=== PATIENT | female | born 1945 | race Caucasian/White ===

== ENCOUNTER 2017-01-04 04:15 | Inpatient (IN) | payer OTHER, MEDICARE ==
[~2017-01-04] VITALS: Ht 152.4 cm; Wt 70.3 kg
[~2017-01-04 04:15] MED LIST: ALIGN4 M1 PO; ATORVASTATIN CA10 M1 PO; AZILECT1 M1 PO; CALCIUM PO; GLUCOSA-CHOND-1 EACH PO; LEVOTHYROXINE112 MCG PO; MIRALAX17 G1 PO; MIRAPEX0.25 M1 PO; MULTIVITAMINS1 EAC9 PO; VICODIN 5-3001 EACH PO; VITAMIN C500 M7 PO; VITAMIN D1000 UNIT PO
--- NOTE | 2017-01-04 10:26 | Admission Core Measures ---
Admission Meds I reviewed the following Meds: Current Medications Sig/Adali Start time Last Medication Dose Stop Time Status Admin Acetaminophen 975 MG ONCE 01/04 0000 NR (Tylenol) 01/04 235 Atorvastatin Calcium 10 MG 1700 01/04 1700 AC (Lipitor) Cefazolin Sodium 2,000 MG ONCE 01/04 0000 NR (Kefzol-Ancef Inj) 01/04 2359 Lactobacillus 1 CAP DAILY 01/04 1000 AC Acidophilus (Probiotic) Levothyroxine Sodium 0.112 MG DAILY AC 01/04 1000 AC (Synthroid) Multivitamins 1 TAB DAILY 01/04 1000 AC Therapeutic (Theragran-M Vitamins Tabs) Oxycodone HCl 10 MG ONCE 01/04 0000 NR (Roxicodone) 01/04 235 Polyethylene Glycol 17 GM DAILY 01/04 1000 AC (Miralax) Pramipexole 0.75 MG TID 01/05 1000 AC Dihydrochloride (Mirapex) Rasagiline 1 MG DAILY 01/05 1000 AC (Azilect 1MG) Rasagiline 1 MG DAILY 01/04 0945 CAN (Azilect 1MG) Acute Coronary Syndrome Inclusion Criteria ACS Diagnosis No Inpatient Core Measures LDL Reminder: If No, please order W/I first 24hr of stay Congestive Heart Failure Inclusion Criteria CHF Diagnosis No Cerebrovascular accident Inclusion Criteria CVA/TIA Diagnosis No Inpatient Core Measures Bedside Swallow Eval Reminder: If BSE failed, place ST order Antithrombotic Reminder: Order Antithrombotic Medication by end of day 2 Antithrombotic Reminder: Document Reason Antithrombotic Not ordered by end of day 2 AFIB/Flutter Reminder: If Present, add to problem list AFIB/Flutter Reminder: Order Anticoag Medication for pts with AFIB/Flutter Atherosclerosis Reminder: If Present, add to problem list LDL Reminder: If No, please order W/I first 24hr of stay PT Order Reminder: If No, please order Venous thromboembolism Inpatient Core Measures VTE Risk Factors: Age > 40, Surgery No Mech VTE prophylaxis d/t No contraindications No VTE Pharm Prophylaxis d/t No contraindications Inclusion Criteria - Per Current guidelines, there needs to be overlap - treatment for the first 5 days of Warfarin therapy. - Parenteral Anticoagulation (IV or SC) needs to be - given along with Warfarin therapy. VTE Diagnosis No VTE Type NONE VTE Confirmed by (Test) NONE Problem List As ranked by this Provider includes Assessment & Plan 1. Unilateral primary osteoarthritis, left hip HOME MEDS Home Med List Ascorbic Acid (Vitamin C) 500 MG CAPSULE.ER 1 CAP PO DAILY SUPPLEMENT ( Reported) Atorvastatin Calcium 10 MG TABLET 1 TAB PO DAILY CHOLESTEROL (Reported) Bifidobacterium Infantis (Align) 4 MG (1 BILLION CELL) CAPSULE 1 TAB PO D BOWEL HEALTH (Reported) [CALCIUM] 1 TAB PO D SUPPLEMENT (Reported) Cholecalciferol (Vitamin D3) (Vitamin D) 1,000 UNIT TABLET 1 TAB PO DAILY SUPPLEMENT (Reported) Gluc/Singh-MSM#1/Vit C/Wil/Bor (Dbgbrhb-Ewgci-EFS Complex Cplt) 375-500 MG TABLET 1 TAB PO D SUPPLEMENT (Reported) Hydrocodone/Acetaminophen (Vicodin 5-300 MG Tablet) 5 MG-300 MG TABLET 1 TAB PO Q4-6 PRN PAIN (Reported) Levothyroxine Sodium 112 MCG TABLET 1 TAB PO DAILY THYROID (Reported) Multiple Vitamin (Multivitamins) 1 EACH TABLET 1 TAB PO DAILY SUPPLEMENT ( Reported) Polyethylene Glycol 3350 (Miralax) 17 GRAM POWD.PACK 1 PAC PO DAILY CONSTIPATION (Reported) Pramipexole Di-HCl (Mirapex) 0.25 MG TABLET 2.25 MG PO D PARKINSONS (Reported ) Rasagiline Mesylate (Azilect) 1 MG TABLET 1 TAB PO D PARKINSONS (Reported)
[2017-01-04] MEDS ORDERED: DILAUDID2 M1 PO (10:28)
[2017-01-04] MEDS ORDERED: MS CONTIN15 M2 PO (10:28)
[2017-01-04] MEDS ORDERED: COLACE100 M1 PO (10:28)
[2017-01-04] MEDS ORDERED: ASPIRIN EC325 M2 PO (10:28)
[2017-01-04] MEDS ORDERED: PRILOSEC OTC20 M1 PO (10:28)
--- NOTE | 2017-01-04 10:37 | Patient Discharge Instructions ---
Discharge Instructions General Discharge Information You were seen/treated for: LEFT HIP PAIN You had these procedures: LEFT TOTAL HIP REPLACEMENT Watch for these problems: INCREASING PAIN DESPITE THE USE OF PAIN MEDICATION, REDNESS, WARMTH, SWELLING. DRAINAGE OF ANY TYPE FROM INCISION. INABILITY TO BEAR WEIGHT ON LEFT LEG. FEVER GREATER THAN 101.5. Do not soak the wound: Yes No bath, but you may shower: Yes Other wound care: KEEP WOUND CLEAN AND DRY. DRESSING WILL BE CHANGED ON POST OPERATIVE DAY 2. IF YOU ARE HOME, IT WILL BE CHANGED BY HOME CARE NURSE. NO OINTMENTS OF ANY KIND ON OR NEAR INCISION. NO EXCEPTIONS. Special Instructions: ASPIRIN: YOU HAVE BEEN GIVEN A PRESCRIPTION FOR ASPIRIN. THE PURPOSE OF THIS MEDICATION IS TO OFFER PROTECTION AGAINST THE DEVELOPMENT OF BLOOD CLOTS. PLEASE BE SURE TO TAKE THIS MEDICATION DIRECTED FOR A MINIMUM OF 3-4 WEEKS. COLACE/MIRALAX: THESE MEDICATIONS HAVE BEEN PRESCRIBED FOR YOU TO HELP PREVENT CONSTIPATION. CONSTIPATION IS VERY COMMON WHEN PAIN MEDICATIONS ARE TAKEN. PLEASE BE SURE TO TAKE THESE MEDICATIONS DIRECTED. ACTIVITY LEVEL: YOU CAN WEIGHT BEAR TOLERATED ON YOUR NEW HIP. FOLLOW UP: DR. HUTCHINS WILL SEE YOU IN HIS OFFICE IN 6 WEEKS FROM THE DATE OF SURGERY. PLEASE BE SURE TO CALL HIS OFFICE TO EITHER ARRANGE OR CONFIRM YOUR FOLLOW UP APPOINTMENT. IF YOU HAVE ANY QUESTIONS OR CONCERNS PRIOR TO THAT APPOINTMENT, DO NOT HESITATE TO CONTACT HIS OFFICE SOONER. Diet Continue normal diet: Yes Recommended Diet: Regular Additional DIET Information: ADVANCE TOLERATED Activity Full Activity/No Limits: No Activity Self Limited: Yes Pounds, do NOT lift more than: 10 Additional ACTIVITY Info: WEIGHT BEAR TOLERATED ON LEFT HIP Acute Coronary Syndrome Inclusion Criteria At DC or during hospital stay patient has or had the following: ACS DIAGNOSIS No Discharge Core Measures Meds if any: Prescribed or Continued at Discharge Meds if any: NOT Prescribed or Continued at Discharge Congestive Heart Failure Inclusion Criteria At DC or during hospital stay patient has or had the following: CHF DIAGNOSIS No Discharge Core Measures Meds if any: Prescribed or Continued at Discharge Meds if any: NOT Prescribed or Continued at Discharge Cerebrovascular accident Inclusion Criteria At DC or during hospital stay patient has or had the following: CVA/TIA Diagnosis No Discharge Core Measures Meds if any: Prescribed or Continued at Discharge Meds if any: NOT Prescribed or Continued at Discharge Venous thromboembolism Inclusion Criteria VTE Diagnosis No VTE Type NONE VTE Confirmed by (Test) NONE Discharge Core Measures - Per Current guidelines, there needs to be overlap - treatment for the first 5 days of Warfarin therapy. - If discharged on Warfarin prior to 5 days of - overlap therapy, the patient will need to be - assessed for post discharge needs including - *Post discharge parental anticoagulation - *Warfarin and/or parental anticoagulation education - *Follow up date to check INR post discharge At least 5 days overlap therapy as Inpatient No Meds if any: Prescribed or Continued at Discharge Note: Overlap Therapy is Warfarin and Anticoagulant Meds if any: NOT Prescribed or Continued at Discharge
--- NOTE | 2017-01-04 10:39 | RADIOLOGY REPORT ---
EXAMINATION: XR HIP, LEFT CLINICAL INFORMATION: Status post left hip replacement COMPARISON: None TECHNIQUE: Portable AP and crosstable lateral views of the left hip. FINDINGS: Prosthetic components of the left total hip arthroplasty are appropriately aligned. No periprosthetic fracture. Gas from recent surgery is present in the surrounding soft tissues. IMPRESSION: Normal postoperative appearance of the left total hip prosthesis.
--- NOTE | 2017-01-04 10:44 | Surgical Discharge Summary ---
Visit Information Visit Dates Admission Date: 01/04/17 Discharge Date: 01/05/17 History of Present Illness Chief Complaint: LEFT HIP PAIN SECONDARY TO PRIMARY UNILATERAL OSTEOARTHRITIS Medical History Isolation History: Standard Surgical History Pertinent Surgical History: non-contributory Review of Systems: SEE H&P Hospital Course Course Attending Physician: KEIRA HUTCHINS MD Primary Care Physician: COLETTE GRUBER,SHEBA Miller Hospital Course: CARLA WAS ADMITTED TO THE HOSPITAL ON 01/04/2017 FOR AN ELECTIVE LEFT TOTAL HIP REPLACEMENT. SHE TOLERATED THE PROCEDURE WELL AND WAS TRANSFERRED TO A GENERAL SURGICAL FLOOR. HER VITAL SIGNS WERE STABLE AND WITHIN NORMAL LIMITS. HER NEUROVASCULAR STATUS REMAINED INTACT. SHE VOIDED SPONTANEOUSLY. HER DIET WAS ADVANCED AND TOLERATED. HER PAIN WAS WELL CONTROLLED WITH ORAL PAIN MEDICATION. SHE WAS EVALUATED AND TREATED BY PHYSICAL THERAPY. SHE WAS DEEMED APPROPRIATE FOR DISCHARGE. Allergies: Coded Allergies: adhesive (RASH 12/31/16) latex (RASH 12/31/16) Disposition Summary Disposition Principal Diagnosis: LEFT HIP UNILATERAL PRIMARY OSTEOARTHRITIS Additional Diagnosis: NONE Discharge Disposition: home health services Discharge Instructions General Discharge Information Code Status: Full Code Patient's Diet: REGULAR, ADVANCE TOLERATED Patient's Activity: WEIGHT BEAR TOLERATED ON LEFT LEG Follow-Up Instructions/Appts: DR. HUTCHINS WILL SEE YOU FOR A FOLLOW UP APPOINTMENT IN 6 WEEKS FROM DATE OF SURGERY. PLEASE CALL HIS OFFICE TO CONFIRM OR ARRANGE THAT APPOINTMENT. Medications at Discharge Discharge Medications: Stop taking the following medications: Hydrocodone/Acetaminophen (Vicodin 5-300 MG Tablet) 5 MG-300 MG TABLET ORAL EVERY 4-6 HOURS as needed for PAIN Continue taking these medications: Multiple Vitamin (Multivitamins) 1 EACH TABLET 1 Tablet ORAL DAILY Comments: NOT GIVEN IN HOSPITAL Polyethylene Glycol 3350 (Miralax) 17 GRAM POWD.PACK 1 Packet ORAL DAILY Instructions: dissolve in water Comments: Last Taken: 01/05/17 Time: 10AM Atorvastatin Calcium (Atorvastatin Calcium) 10 MG TABLET 1 Tablet ORAL DAILY Comments: NOT GIVEN IN HOSPITAL Levothyroxine Sodium (Levothyroxine Sodium) 112 MCG TABLET 1 Tablet ORAL DAILY Comments: Last Taken: 01/05/17 Time: 6AM Bifidobacterium Infantis (Align) 4 MG (1 BILLION CELL) CAPSULE 1 Tablet ORAL Every Day Comments: NOT GIVEN IN HOSPITAL Rasagiline Mesylate (Azilect) 1 MG TABLET 1 Tablet ORAL Every Day Comments: Last Taken: 01/05/17 Time: 8AM Gluc/Singh-MSM#1/Vit C/Wil/Bor (Yhlttty-Zsvtv-HRU Complex Cplt) 375-500 MG TABLET 1 Tablet ORAL Every Day Comments: NOT GIVEN IN HOSPITAL Ascorbic Acid (Vitamin C) 500 MG CAPSULE.ER 1 Capsule ORAL DAILY Comments: NOT GIVEN IN HOSPITAL [CALCIUM] 1 Tablet ORAL Every Day Comments: NOT GIVEN IN HOSPITAL Cholecalciferol (Vitamin D3) (Vitamin D) 1,000 UNIT TABLET 1 Tablet ORAL DAILY Comments: NOT GIVEN IN HOSPITAL Pramipexole Di-HCl (Mirapex) 0.25 MG TABLET 2.25 Milligram ORAL Every Day Comments: Last Taken: 01/05/17 Time: 8AM Start taking the following new medications: Hydromorphone HCl (Dilaudid) 2 MG TABLET 1-2 Tablet ORAL EVERY 4-6 HOURS as needed for PAIN Qty = 36 No Refills Comments: Last Taken: 01/05/17 Time: 10 AM Aspirin (Ecotrin*) 325 MG TABLET.DR 1 Tablet ORAL TWICE DAILY Qty = 60 No Refills Comments: Last Taken: 01/05/17 Time: 8AM Docusate Sodium (Colace) 100 MG CAPSULE 1 Capsule ORAL TWICE DAILY Qty = 14 No Refills Instructions: DISCONTINUE USE IF YOU DEVELOP LOOSE STOOL OR DIARRHEA Comments: Last Taken: 01/05/17 Time: 8AM Morphine Sulfate (Ms Contin) 15 MG TABLET.ER 1 Tablet ORAL TWICE DAILY Qty = 2 No Refills Comments: NOT GIVEN IN HOSPITAL Omeprazole Magnesium (Prilosec Otc) 20 MG TABLET.DR 1 Tablet ORAL DAILY Qty = 30 No Refills Comments: Last Taken: 01/05/17 Time: 6AM
[2017-01-04 11:45] VITALS: BP 120/72
--- NOTE | 2017-01-04 13:51 | NUR ---
PT ARRIVED TO FLOOR AT 1143 VIA STRETCHER FROM PACU. NUMB IN LEGS STILL, UNABLE TO WORK WITH PT AT THIS TIME. ORIENTED TO ROOM AND CALL CALDERON. VSS, O2 FOUND TO BE 85% ON RA, PLACED PT ON 2LNC AND 02 INCREASED TO 93%. PT HAS HX OF ANEMIA THAT CAUSES 02 SAT TO DROP. NO C/O PAIN AT THIS TIME. BLE PULSES PRESENT. SISTER JIMI AT BEDSIDE. WILL MONITOR.
[2017-01-04 14:19] VITALS: BP 122/70
--- NOTE | 2017-01-04 15:43 | Operative Report ---
Operative/Inv Procedure Report Surgery Date: 01/04/17 Name of Procedure: 1. Left total hip replacement 2. Left knee cortisone injection Pre-Operative Diagnosis: 1. Primary left hip DJD 2. Primary left knee DJD Post-Operative Diagnosis: Same Estimated Blood Loss: 250 Surgeon/Cattle Dehorner: LISET GRUBER,KEIRA Mcleod Anesthesia: block Operative/Procedure Note Note: Description of Procedure: The patient was taken to the operating room and positively identified. After induction of spinal anesthesia and administration of appropriate pre-operative antibiotics, the patient was positioned supine on the operating room table and all bony prominences were well padded. The left knee was prepped sterilely and injected with a mixture of 2 mL of Depo- Medrol and 8 mL of half percent Marcaine. A Band-Aid was placed over the injection site. After performing a surgical timeout, the left lower extremity was prepped and draped in the usual sterile fashion. A direct anterior approach was made to the left hip. The incision was carried sharply through superficial soft tissues to the level of the fascia. Meticulous hemostasis was maintained with Bovie electocautery. The fascia over the tensor fascia aries muscle was opened sharply and the interval between the TFL and the sartorius was entered bluntly taking care to stay lateral to the lateral femoral cutaneous nerve. Retractors were placed around the femoral neck and the pericapsular fat was identified. The ascending branches of the lateral femoral circumflex vessels were identified and carefully coagulated. The pericapsular fat and anterior capsule were then resected. A napkin ring osteotomy was performed and the femoral head was removed without difficulty. Attention was then turned to the acetabulum. After appropriate placement of retractors, the acetabulum was exposed. Soft tissue was cleaned from the acetabular margin and notch. Overhanging osteophytes were removed and the teardrop was exposed. The acetabulum was then sequentially reamed to accept a 52 mm Moises Tritanium hemispherical solid back shell. This was impacted into place in the appropriate position and fitted with a 32 mm Trident X3 zero degree polyethylene insert. Attention was then turned to the femur. After performing the appropriate ligament releases, the proximal femur was exposed. It was then sequentially broached to accept a size 4 [place] accolade 2 stem. This was trialed for leg length and stability. The trial component was removed and the final component was impacted into place. The trunnion was carefully cleaned and fit with a 32 mm, -4 Biolox delta ceramic femoral head. The hip was reduced and put through a full range of motion and found to be stable. The articular space was then irrigated with sterile saline. The periarticular soft tissues were infilitrated with Marcaine. The fascial layer was closed with interrupted #1 vicryl suture and the skin was re-approximated with interrupted 2 -0 vicryl. The skin was closed with a running 3-0 V-Lock suture. Steri-strips and a sterile dressing were applied. The patient was awakened and taken to the recovery room in satisfactory condition.
--- NOTE | 2017-01-04 15:50 | NUR ---
PT C/O MILD DISCOMFORT IN BILATERAL SHINS. REMOVAL OF ALPS REVEALED 2 SMALL BRUISES ON SHINS. PT REPORTS SHE BRUISES VERY EASILY AND ATTRIBUTED THEM TO POSITIONING DURING OPERATION. WILL MONITOR.
[2017-01-04 15:53] VITALS: BP 130/70
--- NOTE | 2017-01-04 16:58 | PN- Orthopedic ---
Subjective Subjective: POC S/P LEFT RM HEAS BEEN AMBULATING WITH PT BUT NO STAIRS YET DENIES CP, SOB, NO N+V WITH DIET H/O OF [place] ANEMIA, ASSOC. WITH HYPOXEMIA(BASELINE 85-90% ON RA) CURRENTLY ON 1L AT 96% RA ALSO C/O EASY BRUSING AND HAS BRUSING ON BOTH LE FROM ALPS Objective Vital Signs and I&Os Vital Signs Date Time Temp Pulse Resp B/P B/P Pulse O2 O2 Flow FiO2 Mean Ox Delivery Rate 01/04 1600 96 Nasal 1.5L Cannula 01/04 1553 97.4 88 20 130/70 96 Nasal 1.5L Cannula 01/04 1419 97.0 83 20 122/70 93 Room Air 01/04 1145 Nasal 2.0L Cannula 01/04 1145 97.4 68 18 120/72 85 Room Air Intake & Output 01/04 1600 01/04 0800 01/04 0000 01/03 1600 01/03 0800 01/03 0000 Intake Total 825 Output Total 600 Balance 225 Intake, IV 225 Intake, Oral 600 Output, Urine 600 Patient 155 lb Weight Physical Exam: CV: RRR LUNGS: CLEAR ABD: SOFT, +BS EXT: significant brusing to bilat anterior le distal cms intact dsg dry, thigh soft Assessment/Plan Assessment/Plan ortho stable plan asa for dvt prophylaxis no mech of compression socks oob ambulate ad bib advance diet as tolerated plan fro home d/c in am after stairs with pt Core Measures/Miscellaneous Venous Thromboembolism VTE Risk Factors: Surgery VTE Contraindications: No Contraindications VTE Diagnosis: No VTE Type: NONE VTE Confirmed by (Test): NONE Beta Jenni Is Beta Jenni a Home Med? No Antibiotics Is Patient on Antibiotics? Yes
--- NOTE | 2017-01-04 17:00 | NUR ---
PT NOTED TO BRUISE EASILY, BRUISING NOTED TO BILATERAL SHINS FROM TRANSFERRING. SURGICAL PA MILLIE IN TO SEE PT BRUISING. PER SURG PA, NO TEDS OR ALPS TO BE USED ON PT. WILL CONTINUE TO MONITOR
[2017-01-04 17:41] VITALS: BP 142/84
[2017-01-04 19:56] VITALS: BP 138/70
[2017-01-05 00:07] VITALS: BP 122/80
[2017-01-05 04:20] VITALS: BP 134/70
--- NOTE | 2017-01-05 07:24 | PN- Orthopedic ---
Subjective Subjective: The patient was seen this morning postoperatively day #1. She reports her pain is under adequate control and is eager to work with physical therapy this morning. She has no other complaints the current time. Objective Vital Signs and I&Os Vital Signs Date Time Temp Pulse Resp B/P B/P Pulse O2 O2 Flow FiO2 Mean Ox Delivery Rate 01/05 0420 98.6 90 20 134/70 92 Room Air 01/05 0007 97.8 90 18 122/80 91 Room Air 01/05 0000 91 Room Air 01/04 1956 97.9 90 18 138/70 95 Room Air 01/04 1741 97.9 96 20 142/84 95 Room Air 01/04 1600 96 Nasal 1.5L Cannula 01/04 1553 97.4 88 20 130/70 96 Nasal 1.5L Cannula 01/04 1419 97.0 83 20 122/70 93 Room Air 01/04 1145 Nasal 2.0L Cannula 01/04 1145 97.4 68 18 120/72 85 Room Air Intake & Output 01/05 0800 01/05 0000 01/04 1600 01/04 0800 01/04 0000 01/03 1600 Intake Total 830 825 Output Total 700 600 Balance 130 225 Intake, IV 130 225 Intake, Oral 700 600 Output, Urine 700 600 Patient 155 lb Weight Physical Exam: Gen.: Alert and in no obvious distress Skin: Warm and dry Externus: Bilateral lower ribs are warm without calf tenderness or significant edema. Gross motor and sensory are intact. Bilateral distal lower extremities with various ecchymotic areas due to manipulation which the patient reports his par for the course. Left hip surgical dressing is clean, dry, and intact. Assessment/Plan Assessment/Plan Assessment: 71-year-old female status post left total hip arthroplasty postoperative day. The patient is progressing as expected and her pain is under adequate control. Plan: Out of bed with physical therapy Hep-Lock IV fluids Continue current pain regiment Follow-up morning laboratory studies GI and DVT prophylaxis Discharge home later today if goals met Core Measures/Miscellaneous Venous Thromboembolism VTE Risk Factors: Surgery VTE Contraindications: No Contraindications VTE Diagnosis: No VTE Type: NONE VTE Confirmed by (Test): NONE Beta Jenni Is Beta Jenni a Home Med? No Antibiotics Is Patient on Antibiotics? No
[2017-01-05 08:01] VITALS: BP 130/70
[2017-01-05 08:03] LABS: ABSOLUTE BASOPHIL COUNT 0 /CUMM (0.0-0.2); ABSOLUTE EOSINOPHIL COUNT 0 /CUMM (0.0-0.7); ABSOLUTE GRANULOCYTE CT 11.4 /CUMM (1.4-6.5); ABSOLUTE LYMPH COUNT 1.4 /CUMM (1.2-3.4); BASOPHIL % 0.2 % (0.0-2.0); EOSINOPHIL % 0 % (0-5); GRANULOCYTE % 82.7 % (42.2-75.2); HEMATOCRIT 29.8 % (37-47); MEAN CORPUSCULAR HGB 30.1 PG (27.0-31.0); MEAN CORPUSCULAR HGB CONC 33.3 G/DL (33.0-37.0); MEAN CORPUSCULAR VOLUME 90.3 FL (81.0-99.0); MEAN PLATELET VOLUME 7.9 FL (7.4-10.4); PLATELET COUNT 292 /CUMM (130-400); RBC DISTRIBUTION WIDTH 13.4 % (11.5-14.5); WHITE BLOOD CELL COUNT 13.8 /CUMM (4.8-10.8)
== END 2017-01-05 11:54 | disposition home health service (06) | DRG 470 ==
LOC: SDA 04:15 → ENRESERV 10:03 → 2NA 11:30 → ENPENDDIS 01-05 07:39 → 2NA 01-05 11:54
PROVIDERS: Nurse Practitioner; ADMIT Orthopaedic Surgery
PROC: 3E0U33Z Introduction of Anti-inflammatory into Joints, Percutaneous Approach (ICD-10-PCS; principal; 2017-01-04)
PROC: 3E0U3BZ Introduction of Anesthetic Agent into Joints, Percutaneous Approach (ICD-10-PCS; principal; 2017-01-04)
PROC: 0SRB04A Replacement of Left Hip Joint with Ceramic on Polyethylene Synthetic Substitute, Uncemented, Open Approach (ICD-10-PCS; principal; 2017-01-04)
DX: M16.12 Unilateral primary osteoarthritis, left hip (principal); G20 Parkinson's disease; I10 Essential (primary) hypertension; M17.12 Unilateral primary osteoarthritis, left knee; E78.5 Hyperlipidemia, unspecified; E03.9 Hypothyroidism, unspecified; L40.9 Psoriasis, unspecified
CPT/HCPCS: 2NAP; 73502-LT; 82436; 88304; 97110-GO; 97116-GO; 97161-GP; 97530-GO; J0131; J0690; J0735; J1030; J2550; J7042

== ENCOUNTER 2018-01-03 00:50 | Inpatient (IN) | payer OTHER ==
[~2018-01-03] VITALS: Ht 154.9 cm; Wt 68.0 kg
[~2018-01-03 00:50] MED LIST changes: +ASPIRIN EC325 M2 PO; +CARBIDOPA-LEVO1 EAC7 PO; +COLACE100 M1 PO; +DILAUDID2 M1 PO; +MS CONTIN15 M2 PO; +PRILOSEC OTC20 M1 PO; +TURMERIC 500 M1 EACH; +TYLENOL EXTRA500 M2 PO
--- NOTE | 2018-01-03 08:00 | Admission Core Measures ---
Acute Coronary Syndrome (CM) ACS Core Measures Acute Coronary Syndrome Diagnosis No Congestive Heart Failure (NEW) CHF Core Measures Congestive Heart Failure Diagnosis No Cerebrovascular Accident (NEW) CVA Core Measures CVA/TIA Diagnosis No Venous Thromboembolism VTE Core Delores (View Protocol) VTE Risk Factors Surgery No Mechanical VTE Prophylaxis d/t N/A MechProphylax Ordered No VTE Pharm Prophylaxis d/t NA PharmProphylax ordered Problem List As ranked by this Provider includes Assessment & Plan 1. Primary osteoarthritis of right hip HOME MEDS Home Med List Acetaminophen (Tylenol Extra Strength) 500 MG TABLET 1 TAB PO TID pain ( Reported) Ascorbic Acid (Vitamin C) 500 MG CAPSULE.ER 1 CAP PO DAILY SUPPLEMENT ( Reported) Atorvastatin Calcium 10 MG TABLET 1 TAB PO DAILY CHOLESTEROL (Reported) Bifidobacterium Infantis (Align) 4 MG (1 BILLION CELL) CAPSULE 1 TAB PO D BOWEL HEALTH (Reported) [CALCIUM] 1 TAB PO D SUPPLEMENT (Reported) Carbidopa/Levodopa (Carbidopa-Levodopa 25-100 Tab) 25 MG-100 MG TABLET 1 TAB PO TID parkinsons (Reported) Cholecalciferol (Vitamin D3) (Vitamin D) 1,000 UNIT TABLET 1 TAB PO DAILY SUPPLEMENT (Reported) Docusate Sodium (Colace) 100 MG CAPSULE 1 CAP PO BID CONSITPATION Gluc/Singh-MSM#1/Vit C/Wil/Bor (Gaombdk-Kibwb-POY Complex Cplt) 375-500 MG TABLET 1 TAB PO D SUPPLEMENT (Reported) Levothyroxine Sodium 112 MCG TABLET 1 TAB PO DAILY THYROID (Reported) Multiple Vitamin (Multivitamins) 1 EACH TABLET 1 TAB PO DAILY SUPPLEMENT ( Reported) Rasagiline Mesylate (Azilect) 1 MG TABLET 1 TAB PO D PARKINSONS (Reported)
[2018-01-03] MEDS ORDERED: DILAUDID2 M1 PO (08:04)
[2018-01-03] MEDS ORDERED: PROTONIX20 M1 PO (08:04)
[2018-01-03] MEDS ORDERED: MIRALAX17 G1 PO (08:04)
[2018-01-03] MEDS ORDERED: ASPIRIN EC81 M1 PO (08:08)
--- NOTE | 2018-01-03 08:12 | Patient Discharge Instructions ---
Discharge Instructions General Discharge Information You were seen/treated for: right hip pain You had these procedures: Right total hip replacement Watch for these problems: fever over 101 redness around incision drainage from incision unable to bear weight on right leg Call Surgeon to remove: wound check in 6 weeks Do not soak the wound: Yes No bath, but you may shower: Yes Other wound care: daily dry dressing change keep incision clean and dry Diet Continue normal diet: Yes Activity Activity Self Limited: Yes Pounds, do NOT lift more than: 10 Activity Limited to: Weight bear as tolerated (with rolling walker) Other activity limits: no driving while taking pain medications Acute Coronary Syndrome Inclusion Criteria At DC or during hospital stay patient has or had the following: ACS DIAGNOSIS No Discharge Core Measures Meds if any: Prescribed or Continued at Discharge Meds if any: NOT Prescribed or Continued at Discharge Congestive Heart Failure Inclusion Criteria At DC or during hospital stay patient has or had the following: CHF DIAGNOSIS No Discharge Core Measures Meds if any: Prescribed or Continued at Discharge Meds if any: NOT Prescribed or Continued at Discharge Cerebrovascular accident Inclusion Criteria At DC or during hospital stay patient has or had the following: CVA/TIA Diagnosis No Discharge Core Measures Meds if any: Prescribed or Continued at Discharge Meds if any: NOT Prescribed or Continued at Discharge Venous thromboembolism Inclusion Criteria VTE Diagnosis No VTE Type NONE VTE Confirmed by (Test) NONE Discharge Core Measures - Per Current guidelines, there needs to be overlap - treatment for the first 5 days of Warfarin therapy. - If discharged on Warfarin prior to 5 days of - overlap therapy, the patient will need to be - assessed for post discharge needs including - *Post discharge parental anticoagulation - *Warfarin and/or parental anticoagulation education - *Follow up date to check INR post discharge At least 5 days overlap therapy as Inpatient No Meds if any: Prescribed or Continued at Discharge Note: Overlap Therapy is Warfarin and Anticoagulant Meds if any: NOT Prescribed or Continued at Discharge
--- NOTE | 2018-01-03 08:20 | Surgical Discharge Summary ---
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 Patient/Self What is Your Primary Language? Amharic Review of Systems: as per [facility] Hospital Course Course Attending Physician: Art Bray MD Primary Care Physician: Mayito Rain MD Hospital Course: Pt presented to [facility] on 01/03/18 for an elective right total hip arthroplasty. Pt tolerated the procedure well. Post-operatively she voided spontaneously, tolerated PO intake, pain was managed with oral medication, she ambulated with physical therapy and was cleared for discharge to home with home health services. Discharge instructions were reviewed with the patient. She was given instructions to follow-up with Dr. Bray in 6 weeks and to call sooner if she has any questions or concerns Allergies: Coded Allergies: adhesive (RASH 12/29/17) latex (RASH 12/29/17) Disposition Summary Disposition Principal Diagnosis: primary unilateral right hip osteoarthritis Additional Diagnosis: SP R RM Discharge Disposition: home health services Discharge Instructions General Discharge Information Code Status: Full Code Patient's Diet: regular Patient's Activity: WBAT with rolling walker Follow-Up Instructions/Appts: FU in 6wks with Dr. Bray Medications at Discharge Discharge Medications: Continue taking these medications: Multiple Vitamin (Multivitamins) 1 EACH TABLET 1 Tablet ORAL DAILY Comments: NOT GIVEN IN HOSPITAL Atorvastatin Calcium (Atorvastatin Calcium) 10 MG TABLET 1 Tablet ORAL DAILY Comments: NOT GIVEN IN HOSPITAL Levothyroxine Sodium (Levothyroxine Sodium) 112 MCG TABLET 1 Tablet ORAL DAILY Comments: Last Taken: 01/05/17 Time: 6AM Bifidobacterium Infantis (Align) 4 MG (1 BILLION CELL) CAPSULE 1 Tablet ORAL Every Day Comments: NOT GIVEN IN HOSPITAL Rasagiline Mesylate (Azilect) 1 MG TABLET 1 Tablet ORAL Every Day Comments: Last Taken: 01/05/17 Time: 8AM Gluc/Singh-MSM#1/Vit C/Wil/Bor (Ngolsbf-Swtzo-XTG Complex Cplt) 375-500 MG TABLET 1 Tablet ORAL Every Day Comments: NOT GIVEN IN HOSPITAL Ascorbic Acid (Vitamin C) 500 MG CAPSULE.ER 1 Capsule ORAL DAILY Comments: NOT GIVEN IN HOSPITAL [CALCIUM] 1 Tablet ORAL Every Day Comments: NOT GIVEN IN HOSPITAL Cholecalciferol (Vitamin D3) (Vitamin D) 1,000 UNIT TABLET 1 Tablet ORAL DAILY Comments: NOT GIVEN IN HOSPITAL Docusate Sodium (Colace) 100 MG CAPSULE 1 Capsule ORAL TWICE DAILY Qty = 14 Instructions: DISCONTINUE USE IF YOU DEVELOP LOOSE STOOL OR DIARRHEA Comments: Last Taken: 01/05/17 Time: 8AM Acetaminophen (Tylenol Extra Strength) 500 MG TABLET 1 Tablet ORAL THREE TIMES DAILY as needed for PAIN Carbidopa/Levodopa (Carbidopa-Levodopa 25-100 Tab) 25 MG-100 MG TABLET 1 Tablet ORAL THREE TIMES DAILY Turmeric/Turmeric Root Extract (Turmeric 500 MG Capsule) 450 MG-50 MG CAPSULE Start taking the following new medications: Hydromorphone HCl (Dilaudid) 2 MG TABLET 1-2 Tablet ORAL EVERY 4-6 HOURS NEEDED as needed for PAIN Qty = 36 No Refills Polyethylene Glycol 3350 (Miralax) 17 GRAM POWD.PACK 1 Packet ORAL DAILY Qty = 7 No Refills Instructions: dissolve in water. STOP TAKING IF YOU DEVELOP LOOSE STOOL/DIARRHEA Pantoprazole Sodium (Protonix) 20 MG TABLET.DR 1 Tablet ORAL DAILY Qty = 30 No Refills Aspirin (Ecotrin*) 81 MG TABLET.DR 1 Tablet ORAL TWICE DAILY Qty = 60 No Refills Copies To: Briseyda GRUBER,Mayito Miller
--- NOTE | 2018-01-03 10:37 | RADIOLOGY REPORT ---
EXAMINATION: XR HIP, RIGHT CLINICAL INFORMATION: Hip arthroplasty COMPARISON: None TECHNIQUE: Two views of the right hip. FINDINGS: The head of the femoral prosthesis is well centered within the acetabular cup. There appears to be appropriate anterior and lateral version of the acetabular cup. The tip of the femoral stem is positioned within the medullary cavity of the proximal femoral diaphysis. No acute periprosthetic fracture. Postoperative soft tissue swelling and soft tissue emphysema of the proximal right thigh/hip. IMPRESSION: There is satisfactory position and alignment of components of the right total hip arthroplasty.
[2018-01-03 11:45] VITALS: BP 122/54
--- NOTE | 2018-01-03 13:24 | PN- Orthopedic ---
Subjective Subjective: POST-OP CHECK pt sitting in chair, mild right hip discomfort. ambulated with nurse. Denies paresthesias. Denies cp/sob, N/v. tolerating diet, due to void Objective Vital Signs and I&Os Vital Signs Date Time Temp Pulse Resp B/P B/P Pulse O2 O2 Flow FiO2 Mean Ox Delivery Rate 01/03 1242 Nasal 2.0L Cannula 01/03 1145 97.8 86 18 122/54 92 Room Air Intake & Output 01/03 1600 01/03 0800 01/03 0000 01/02 1600 01/02 0800 01/02 0000 Intake Total Output Total Balance Patient 150 lb Weight Weight Standing Scale Measurement Method Physical Exam: gen- NAD resp- clear cardiac- RRR abd- soft, nt ext- right hip dressing clean and dry, thigh soft. no calf tenderness. small abrasion on right hill with dry dressing help in place by ALPs. Distal sensory and motor function intact. Current Medications: Current Medications Sig/Adali Start time Last Medication Dose Route Stop Time Status Admin Acetaminophen 1,000 MG Q6 01/03 1200 AC 01/03 IV 01/04 0601 1240 Acetaminophen 0 .STK-MED ONE 01/03 0709 DC PO Acetaminophen 975 MG ONE 01/03 0000 DC PO 01/03 2359 Aspirin 81 MG BID 01/03 0900 AC PO Atorvastatin Calcium 10 MG 1700 01/03 1700 DC PO Atorvastatin Calcium 10 MG 1700 01/03 1700 AC PO Carbidopa/Levodopa 1 TAB TID 01/03 1400 AC PO Carbidopa/Levodopa 1 TAB TID 01/03 0900 DC PO Cefazolin Sodium 2 GM IQ8 01/03 1600 AC N/A 1 UNIT IV 01/03 1629 Cefazolin Sodium 2,000 MG ONE 01/03 0000 DC IV 01/03 2359 Dextrose/Sodium 1,000 ML .[id number] 01/03 1200 AC 01/03 Chloride IV 01/04 0119 1159 Docusate Sodium 100 MG BID 01/03 0900 AC PO Hydromorphone HCl 2 MG Q4P PRN 01/03 1200 AC PO Hydromorphone HCl 4 MG Q4P PRN 01/03 1200 AC PO Levothyroxine Sodium 0.112 MG DAILY AC 01/04 0700 AC PO Levothyroxine Sodium 0.112 MG DAILY AC 01/03 0900 DC PO Morphine Sulfate 2 MG Q2P PRN 01/03 1200 AC IV Non-Formulary 0 SEE ADMIN CRITERIA 01/03 0745 CAN Medication ANY Omeprazole 20 MG DAILY AC 01/04 0700 AC PO Ondansetron HCl 4 MG Q6P PRN 01/03 1200 AC IV Oxycodone HCl 0 .STK-MED ONE 01/03 0709 DC PO Oxycodone HCl 10 MG ONE 01/03 0000 DC PO 01/03 2359 Polyethylene Glycol 17 GM DAILY NEEDED 01/03 1200 AC PO Promethazine HCl 12.5 MG Q6P PRN 01/03 1200 AC IV 01/10 0744 Rasagiline 1 MG DAILY 01/03 0900 AC PO Assessment/Plan Assessment/Plan 72yo F SP Right RM POD0. stable. due to void pain management with PO meds DVT ppx- Asa 81mg bid PT- WBAT w rolling walker dressing change POD2 reg diet- will dc IVF in am encourage IS reg home meds FU AM labs Dc planning- likely home with HHS in am Core Measures Venous Thromboembolism VTE Risk Factors Surgery No Mechanical VTE Prophylaxis d/t N/A MechProphylax Ordered No VTE Pharm Prophylaxis d/t NA PharmProphylax ordered
[2018-01-03 14:00] VITALS: BP 120/60
--- NOTE | 2018-01-03 14:34 | Operative Report ---
Operative/Inv Procedure Report Surgery Date: 01/03/18 Name of Procedure: Right total hip replacement Pre-Operative Diagnosis: Primary right hip DJD Post-Operative Diagnosis: Same Estimated Blood Loss: 250 Surgeon/Railroad Commissioner: Katarina GRUBER,Art Mcleod Anesthesia: block Operative/Procedure Note Note: Description of Procedure: The patient was taken to the operating room and positively identified. After induction of spinal anesthesia and administration of appropriate pre-operative antibiotics, the patient was positioned supine on the operating room table and all bony prominences were well padded. After performing a surgical timeout, the right lower extremity was prepped and draped in the usual sterile fashion. A direct anterior approach was made to the right hip. The incision was carried sharply through superficial soft tissues to the level of the fascia. Meticulous hemostasis was maintained with Bovie electocautery. The fascia over the tensor fascia aries muscle was opened sharply and the interval between the TFL and the sartorius was entered bluntly taking care to stay lateral to the lateral femoral cutaneous nerve. Retractors were placed around the femoral neck and the pericapsular fat was identified. The ascending branches of the lateral femoral circumflex vessels were identified and carefully coagulated. The pericapsular fat and anterior capsule were then resected. A napkin ring osteotomy was performed and the femoral head was removed without difficulty. Attention was then turned to the acetabulum. After appropriate placement of retractors, the acetabulum was exposed. Soft tissue was cleaned from the acetabular margin and notch. Overhanging osteophytes were removed and the teardrop was exposed. The acetabulum was then sequentially reamed to accept a 52 mm Moises Tritanium hemispherical solid shell. This was impacted into place in the appropriate position and fitted with a 32 mm Trident X3 zero degree polyethylene insert. Attention was then turned to the femur. After performing the appropriate ligament releases, the proximal femur was exposed. It was then sequentially broached to accept a size #4 [place] Accolade 2 stem. This was trialed for leg length and stability. The trial component was removed and the final component was impacted into place. The trunnion was carefully cleaned and fit with a 32 mm, -4 Biolox delta ceramic femoral head. The hip was reduced and put through a full range of motion and found to be stable. The articular space was then irrigated with sterile saline. The periarticular soft tissues were infilitrated with Marcaine. The fascial layer was closed with interrupted #1 vicryl suture and the skin was re-approximated with interrupted 2 -0 vicryl. The skin was closed with a running 3-0 V-Lock suture. Steri-strips and a sterile dressing were applied. The patient was awakened and taken to the recovery room in satisfactory condition.
[2018-01-03 15:43] VITALS: BP 117/80
[2018-01-03 18:00] VITALS: BP 132/80
[2018-01-04 01:04] VITALS: BP 124/76
[2018-01-04 05:00] VITALS: BP 128/76
--- NOTE | 2018-01-04 07:54 | PN- Orthopedic ---
Subjective Subjective: Patient reports pain well controlled with tylenol. Ambulated with PT yesterday. Tolerating diet and voiding spontanously. Offers no other complaints. Objective Vital Signs and I&Os Vital Signs Date Time Temp Pulse Resp B/P B/P Pulse O2 O2 Flow FiO2 Mean Ox Delivery Rate 01/04 0500 98.0 82 18 128/76 96 01/04 0104 97.6 87 18 124/76 97 01/04 0000 97 Nasal 2.0L Cannula 01/03 1800 97.8 86 18 132/80 97 Nasal 2.0L Cannula 01/03 1543 98.2 85 18 117/80 94 01/03 1400 97.5 80 20 120/60 93 01/03 1242 Nasal 2.0L Cannula 01/03 1145 97.8 86 18 122/54 92 Room Air Intake & Output 01/04 0800 01/04 0000 01/03 1600 01/03 0800 01/03 0000 01/02 1600 Intake Total 720 1080 Output Total 1200 500 500 Balance -480 -500 580 Intake, IV 240 600 Intake, Oral 480 480 Number 0 Bowel Movements Output, Urine 1200 500 500 Patient 150 lb Weight Weight Standing Scale Measurement Method Physical Exam: Gen- NAD Lungs - CTAB cardiac- RRR Abd- soft, nt/nd Ext- right hip dressing clean and dry, compartment soft, moves all extremities, motor and sensory intact, alps/teds in place, calf dressings in place B/L Current Medications: Current Medications Sig/Adali Start time Last Medication Dose Route Stop Time Status Admin Acetaminophen 1,000 MG Q6 01/03 1200 DC 01/04 IV 01/04 0601 0614 Acetaminophen 975 MG ONE 01/03 0000 DC PO 01/03 2359 Aspirin 81 MG BID 01/03 0900 AC 01/03 PO 2146 Atorvastatin Calcium 10 MG 1700 01/03 1700 DC PO Atorvastatin Calcium 10 MG 1700 01/03 1700 AC 01/03 PO 1623 Calcium Carbonate 500 MG ONCE ONE 01/03 1815 DC PO 01/03 1816 Carbidopa/Levodopa 1 TAB TID 01/03 1400 AC 01/03 PO 2146 Carbidopa/Levodopa 1 TAB TID 01/03 0900 DC PO Cefazolin Sodium 2 GM IQ8 01/03 1600 DC 01/03 N/A 1 UNIT IV 01/03 1629 1623 Cefazolin Sodium 2,000 MG ONE 01/03 0000 DC IV 01/03 2359 Dextrose/Sodium 1,000 ML .[id number] 01/03 1200 DC 01/03 Chloride IV 01/04 0119 1159 Docusate Sodium 100 MG BID 01/03 0900 AC 01/03 PO 2145 Hydromorphone HCl 2 MG Q4P PRN 01/03 1200 AC 01/03 PO 1341 Hydromorphone HCl 4 MG Q4P PRN 01/03 1200 AC 01/04 PO 0436 Levothyroxine Sodium 0.112 MG DAILY AC 01/04 0700 AC 01/04 PO 0615 Levothyroxine Sodium 0.112 MG DAILY AC 01/03 0900 DC PO Morphine Sulfate 2 MG Q2P PRN 01/03 1200 AC IV Non-Formulary 0 SEE ADMIN CRITERIA 01/03 0745 CAN Medication ANY Omeprazole 20 MG DAILY AC 01/04 0700 AC 01/04 PO 0615 Ondansetron HCl 4 MG Q6P PRN 01/03 1200 AC 01/04 IV 0432 Oxycodone HCl 10 MG ONE 01/03 0000 DC PO 01/03 2359 Polyethylene Glycol 17 GM DAILY NEEDED 01/03 1200 AC PO Promethazine HCl 12.5 MG Q6P PRN 01/03 1200 AC IV 01/10 0744 Rasagiline 1 MG DAILY 01/03 0900 AC 01/03 PO 1407 Results Last 48 Hours of Labs: Laboratory Tests 01/04 0607 Chemistry Sodium Pending Potassium Pending Chloride Pending Carbon Dioxide Pending Anion Gap Pending BUN Pending Creatinine Pending BUN/Creatinine Ratio Pending Hematology CBC w Diff Pending WBC Pending RBC Pending Hgb Pending Hct Pending MCV Pending MCH Pending MCHC Pending RDW Pending Plt Count Pending MPV Pending Assessment/Plan Assessment/Plan 72 F POD 1 s/p right anterior RM, recovering well Cont reg diet, d/c IVF Cont pain regimen pain DVT ppx- asa 81mg bid x 1 month OOB PT, WBAT Encourage IS Home meds on board Change calf dressing B/L F/u labs Anticipate d/c today pending PT clearance Core Measures Venous Thromboembolism VTE Risk Factors Surgery No Mechanical VTE Prophylaxis d/t N/A MechProphylax Ordered No VTE Pharm Prophylaxis d/t NA PharmProphylax ordered
[2018-01-04 08:38] LABS: ABSOLUTE BASOPHIL COUNT 0 /CUMM (0.0-0.2); ABSOLUTE EOSINOPHIL COUNT 0 /CUMM (0.0-0.7); ABSOLUTE GRANULOCYTE CT 8.1 /CUMM (1.4-6.5); ABSOLUTE LYMPH COUNT 1.2 /CUMM (1.2-3.4); BASOPHIL % 0.4 % (0.0-2.0); EOSINOPHIL % 0.1 % (0-5); GRANULOCYTE % 78.4 % (42.2-75.2); HEMATOCRIT 29.2 % (37-47); MEAN CORPUSCULAR HGB 31.3 PG (27.0-31.0); MEAN CORPUSCULAR HGB CONC 34.2 G/DL (33.0-37.0); MEAN CORPUSCULAR VOLUME 91.7 FL (81.0-99.0); MEAN PLATELET VOLUME 8.7 FL (7.4-10.4); PLATELET COUNT 220 /CUMM (130-400); RBC DISTRIBUTION WIDTH 12.8 % (11.5-14.5); RED BLOOD CELL CT 3.19 /CUMM (4.20-5.40); WHITE BLOOD CELL COUNT 10.4 /CUMM (4.8-10.8)
[2018-01-04 09:33] VITALS: BP 104/62
== END 2018-01-04 13:43 | disposition home health service (06) | DRG 470 ==
LOC: SDA 00:50 → ENRESERV 10:23 → ENTRNSPT 11:18 → EDTRNSPTSTS 11:28 → EDTRNSPT 11:28 → 2NB 11:42 → CMPTRNSPT 11:55 → ENPENDDIS 01-04 10:09 → ENTRNSPT 01-04 13:28 → 2NB 01-04 13:43 → EDTRNSPT 01-04 13:49 → EDTRNSPTSTS 01-04 13:49 → CMPTRNSPT 01-04 14:07
PROVIDERS: Physician Assistant Surgical
PROC: 0SR904A Replacement of Right Hip Joint with Ceramic on Polyethylene Synthetic Substitute, Uncemented, Open Approach (ICD-10-PCS; principal; 2018-01-03)
DX: M16.11 Unilateral primary osteoarthritis, right hip (principal); G20 Parkinson's disease; D64.9 Anemia, unspecified; Z96.642 Presence of left artificial hip joint; E03.9 Hypothyroidism, unspecified; E78.5 Hyperlipidemia, unspecified; K21.9 Gastro-esophageal reflux disease without esophagitis
CPT/HCPCS: 2NBP; 36592; 73502-RT; 82436; 97110-GO; 97116-GO; 97161-GP; 97530-GO; J0131; J0690; J0735; J2405; J2550; J3490; J7042